=== PATIENT | male | born 1985 | race Caucasian/White ===

== ENCOUNTER 2017-10-29 18:02 | Emergency (ER) | payer OTHER ==
[2017-10-29 18:36] VITALS: BP 138/92; PULSE 72; RESP 20; TEMP 98.9; O2SAT 98
[2017-10-29] MEDS ORDERED: Tdap Vaccine 0.5 ml Vial (10-64 yrs) IM ONE ×2 (19:08→19:16)
[2017-10-29] MEDS ORDERED: Lidocaine 2% MPF (5 ml) Inj ONE (19:24)
[2017-10-29] MEDS ORDERED: Bacitracin 500 Units/gm Oint Foilpak UD TOP ONE (19:25)
[2017-10-29] MEDS ORDERED: Lidocaine 2% Inj (20ml) INFIL ONE (19:25)
[2017-10-29] MEDS ORDERED: Bacitracin 500 Units/gm Oint Foilpak UD ONE (19:28)
--- NOTE | 2017-10-29 19:55 | C.PDOC ---
History Of Present Illness 32 y/o male presents for evaluation of a laceration sustained around 5 pm today. Patient states he was using a hand truck today, placed his foot upon the truck resulting in a laceration to the plantar aspect of right pinky toe. No other injuries. Tetanus is not up to date. Otherwise patient denies any numbness , weakness, or tingling. Time Seen by Provider: 10/29/17 19:00 Chief Complaint (Nursing): Abnormal Skin Integrity History Per: Patient History/Exam Limitations: no limitations Onset/Duration Of Symptoms: Days Current Symptoms Are (Timing): Still Present Past Medical History Reviewed: Historical Data, Nursing Documentation, Vital Signs Vital Signs: Last Vital Signs Temp 98.9 F 10/29/17 18:28 Pulse 72 10/29/17 18:28 Resp 20 10/29/17 18:28 BP 138/92 H 10/29/17 18:28 Pulse Ox 98 10/29/17 20:09 Family History: States: No Known Family Hx - Social History Hx Alcohol Use: Yes Hx Substance Use: No - Immunization History Hx Tetanus Toxoid Vaccination: No Hx Influenza Vaccination: No Hx Pneumococcal Vaccination: No Review Of Systems Except As Marked, All Systems Reviewed And Found Negative. Skin: Positive for: Lesions (laceration to right pinky toe) Neurological: Negative for: Weakness, Numbness, Incoordination Physical Exam - Physical Exam Appears: Non-toxic, No Acute Distress Skin: Normal Color, Warm, Dry Head: Atraumatic, Normacephalic Eye(s): bilateral: Normal Inspection Neck: Normal ROM, Supple Chest: Symmetrical Extremity: Normal ROM, No Tenderness, Capillary Refill (< 2 sec), No Swelling, Other (1.5 cm laceration to the plantar aspect of right 5th toe, near the web space) Pulses: Left Dorsalis Pedis: Normal, Right Dorsalis Pedis: Normal Neurological/Psych: Oriented x3, Normal Speech, Normal Motor, Normal Sensation ED Course And Treatment O2 Sat by Pulse Oximetry: 98 (RA) Pulse Ox Interpretation: Normal Laceration - Laceration Repair right 5th digit Wound Length (In cm): 1.5 Description Of Wound: Linear Wound Cleansed With: Betadine, Sterile Saline Anesthesia: Lidocaine 2% Wound Examination: Irrigated With Saline, No FB With Wound Exploration Wound Closure: Suture (x3) Suture Technique And Material Used: Nylon (4:0) Wound Complexity: Simple Medical Decision Making Medical Decision Making: Plan: --Tetanus booster --Lido 2% used for laceration repair --Bacitracin applied Patient is stable for discharge home. Disposition - Disposition Referrals: [facility] at [facility] [Outside] Disposition: HOME/ ROUTINE Disposition Time: 19:52 Condition: GOOD Additional Instructions: Keep the toe clean and dry over the next 2 days. Then wash the area with soap and water, then apply bacitracin twice a day. Sutures to be removed within 7-20 days . Return if worsened. Prescriptions: Bacitracin Ointment [Bacitracin] 30 gm TOP BID #1 tube Ciprofloxacin [Cipro] 1 tab PO BID #14 tab Instructions: Laceration Repair Forms: [facility] [facility] (Korean) - Clinical Impression Clinical Impression: Foot laceration - PA / [employer]ER / Resident Statement MD/DO has reviewed & agrees with the documentation as recorded. - Scribe Statement The provider has reviewed the documentation as recorded by the Scribe (Juana Soto) All medical record entries made by the Scribe were at my direction and personally dictated by me. I have reviewed the chart and agree that the record accurately reflects my personal performance of the history, physical exam, medical decision making, and the department course for this patient. I have also personally directed, reviewed, and agree with the discharge instructions and disposition.
== END 2017-10-29 20:09 | disposition home or self-care (01) ==
LOC: C.ER 18:02
DX: S91.114A Laceration without foreign body of right lesser toe(s) without damage to nail, initial encounter (principal); X58.XXXA Exposure to other specified factors, initial encounter; Z23 Encounter for immunization

== ENCOUNTER 2017-11-05 19:59 | Emergency (ER) | payer OTHER ==
[2017-11-05 20:14] VITALS: BP 128/83; PULSE 71; RESP 20; TEMP 98.2; O2SAT 100
[2017-11-05] MEDS ORDERED: Bacitracin 500 Units/gm Oint Foilpak UD ONE (20:50)
--- NOTE | 2017-11-05 21:09 | C.PDOC ---
History Of Present Illness 32 year old male presents to the ED for a suture removal from his right foot. Patient states wound is well-healing and denies fever, chills, drainage from the site. Time Seen by Provider: 11/05/17 20:20 Chief Complaint (Nursing): Suture/Staple Removal History Per: Patient History/Exam Limitations: no limitations Onset/Duration Of Symptoms: Days Ago Current Symptoms Are (Timing): Still Present Location Of Injury: Left: Foot Additional History Per: Patient Past Medical History Reviewed: Historical Data, Nursing Documentation, Vital Signs Vital Signs: Last Vital Signs Temp 98.2 F 11/05/17 20:09 Pulse 71 11/05/17 20:09 Resp 20 11/05/17 20:09 BP 128/83 11/05/17 20:09 Pulse Ox 100 11/05/17 21:22 - Medical History PMH: No Chronic Diseases Surgical History: No Surg Hx Family History: States: Unknown Family Hx - Social History Hx Alcohol Use: Yes Hx Substance Use: No - Immunization History Hx Tetanus Toxoid Vaccination: No Hx Influenza Vaccination: No Hx Pneumococcal Vaccination: No Review Of Systems Constitutional: Negative for: Fever, Chills Musculoskeletal: Positive for: Foot Pain (right) Skin: Negative for: Other (drainage ) Physical Exam - Physical Exam Appears: Non-toxic, No Acute Distress Skin: Warm, Dry, Other (well-healed suture wound to right foot. no swelling, erythema, drainge, or signs of infection ) Extremity: Normal ROM, Capillary Refill (less than 2 seconds ) Neurological/Psych: Oriented x3, Normal Speech, Normal Cognition ED Course And Treatment O2 Sat by Pulse Oximetry: 100 (on RA) Pulse Ox Interpretation: Normal Disposition - Disposition Referrals: Cat Jon MD [Staff Provider] - Disposition: HOME/ ROUTINE Disposition Time: 21:08 Condition: GOOD Additional Instructions: Return if worsened. Instructions: Stitches Removal Forms: [facility] (Lithuanian) - Clinical Impression Clinical Impression: Removal of suture - PA / BLOOD BANK SPECIALIST / Resident Statement MD/DO has reviewed & agrees with the documentation as recorded. - Scribe Statement The provider has reviewed the documentation as recorded by the Scribe (Dee Jon) All medical record entries made by the Scribe were at my direction and personally dictated by me. I have reviewed the chart and agree that the record accurately reflects my personal performance of the history, physical exam, medical decision making, and the department course for this patient. I have also personally directed, reviewed, and agree with the discharge instructions and disposition.
== END 2017-11-05 21:28 | disposition home or self-care (01) ==
LOC: C.ER 19:59
DX: Z48.02 Encounter for removal of sutures (principal)